=== PATIENT | male | born 1970 | race Caucasian/White ===

== ENCOUNTER 2017-04-14 08:26 | Inpatient (IN) | payer OTHER ==
[2017-04-14 10:18] VITALS: BMI 24.5
--- NOTE | 2017-04-14 12:50 | HP ---
COWS - Scale Resting Pulse: 0= [place] 80 or Below Sweatin= Chills/Flushing Restless Observation: 3= Extraneous Movement Pupil Size: 2= Moderately Dilated Bone or Joint Aches: 4=Acute Joint/Muscle Pain Runny Nose/ Eye Tearin= Nasal Congestion GI Upset > 30mins: 1= Stomach Cramp Tremor Observation: 1= Tremor [place], Not Seen Yawning Observation: 1= 1-2x During Session Anxiety or Irritability: 2=Irritable/Anxious Goose Flesh Skin: 0=Smooth Skin COWS Score: 16 Admission ROS S - HPI Chief Complaint: DETOX TX FOR HEROIN WITHDRAWAL SX. Allergies/Adverse Reactions: Allergies Allergy/AdvReac Type Severity Reaction Status Date / Time No Known Allergies Allergy Verified 04/14/17 10:44 History of Present Illness: 46 Y/O H/M WITH A HX OF HEROIN DEPENDENCE AND SOME DAYS XANAX USE SEEKING DETOX TX. Exam Limitations: No Limitations - Ebola screening Have you traveled outside of the country in the last 21 days: No Have you had contact with anyone from an Ebola affected area: No Have you been sick,other than usual withdrawal symptoms: No - Review of Systems Constitutional: Chills, Night Sweats, Changes in sleep, Unintentional Wgt. Loss EENT: reports: Blurred Vision, Tearing, Nose Congestion, Dental Problems ( CAVITIES) Respiratory: reports: No Symptoms reported Cardiac: reports: Lightheadedness GI: reports: Constipated, Diarrhea, Nausea, Poor Fluid Intake, Vomiting, Abdominal cramping : reports: No Symptoms Reported Musculoskeletal: reports: Back Pain, Joint Pain, Muscle Pain Integumentary: reports: No Symptoms Reported Neuro: reports: Headache, Tremors, Unsteady Gait, Dizziness Endocrine: reports: No Symptoms Reported Hematology: reports: No Symptoms Reported Psychiatric: reports: Orientated x3, Anxious Other Systems: Reviewed and Negative Patient History - Patient Medical History Hx Anemia: No Hx Asthma: No Hx Chronic Obstructive Pulmonary Disease (COPD): No Hx Cardiac Disorders: No Hx Hypertension: No Hx Hypercholesterolemia: No HX Cerebrovascular Accident: No Hx Seizures: No Hx Diabetes: No Hx Gastrointestinal Disorders: No Hx Genitourinary Disorders: No Hx Sexually Transmitted Disorders: No Hx Renal Disease (ESRD): No Hx Thyroid Disease: No Hx Human Immunodeficiency Virus (HIV): No (NEGATIVE HX) Hx Hepatitis C: No Hx Depression: No Hx Suicide Attempt: No (DENIES) Hx Schizophrenia: No - Patient Surgical History Past Surgical History: No Hx Neurologic Surgery: No Hx Cataract Extraction: No Hx Cardiac Surgery: No Hx Lung Surgery: No Hx Breast Surgery: No Hx Breast Biopsy: No Hx Abdominal Surgery: No Hx Appendectomy: No Hx Cholecystectomy: No Hx Genitourinary Surgery: No Hx Orthopedic Surgery: No Anesthesia Reaction: No - PPD History Previous Implant?: Yes Implanted On Prior [facility] Admission?: No PPD to be Administered?: Yes - Reproductive History Patient is a Female of Child Bearing Age (11 -55 yrs old): No (MALE) Patient : Yes (N/A) - Smoking Cessation Smoking history: Current every day smoker Have you smoked in the past 12 months: Yes Aproximately how many cigarettes per day: 8 Hx Chewing Tobacco Use: No Initiated information on smoking cessation: Yes 'Breaking Loose' booklet given: 04/14/17 - Substance & Tx. History Hx Alcohol Use: No (DENIES) Hx Substance Use: Yes (HEROIN/XANAX) Substance Use Type: Heroin, Tranquilizers Hx Substance Use Treatment: Yes (LAST TX AT [facility] DETOX) - Substances Abused Heroin Route: Inhalation Frequency: Daily Amount used: 20 bags Age of first use: 15 Date of Last Use: 04/14/17 Xanax Route: Oral Frequency: 1-3 times last 30 days Amount used: 2 mg. Age of first use: 45 Date of Last Use: 04/12/17 Family Disease History - Family Disease History Family Disease History: Diabetes: Father Admission Physical Exam S - Vital Signs Vital Signs: Vital Signs - 24 hr 04/14/17 10:16 Temperature 97.2 F L Pulse Rate 69 Respiratory 20 Rate Blood Pressure 100/69 - Physical General Appearance: Yes: Moderate Distress, Irritable, Anxious HEENTM: Yes: EOMI, Normal ENT Inspection, Normocephalic, FADI Respiratory: Yes: Chest Non-Tender, Lungs Clear, Normal Breath Sounds, No Respiratory Distress Neck: Yes: No masses,lesions,Nodules, Supple, Trachea in good position Breast: Yes: Breast Exam Deferred Cardiology: Yes: Regular Rhythm, Regular Rate, S1, S2 Abdominal: Yes: Normal Bowel Sounds, Non Tender, Flat Genitourinary: Yes: Other Back: Yes: Within Normal Limits Musculoskeletal: Yes: full range of Motion, Gait Steady Extremities: Yes: Normal Range of Motion, Non-Tender Neurological: Yes: battery repairer II-XII NML intact, Fully Oriented, Alert, Motor Strength 5/5 Integumentary: Yes: Dry, Warm Lymphatic: Yes: Within Normal Limits - Diagnostic (1) Opioid dependence with withdrawal Current Visit: Yes Status: Acute Cleared for Admission [facility] - Detox or Rehab [facility] Level of Care: Medically Managed Detox Regimen/Protocol: Methadone [facility] Breath Alcohol Content Breath Alcohol Content: 0 Urine Drug Screen - Results Drug Screen Negative: No Urine Drug Screen Results: THC-Marijuana, MARLEEN-Cocaine
[2017-04-14] MEDS ORDERED: ACETAMINOPHEN 325 MG TABLET (FP) PO PRN (12:58)
[2017-04-14] MEDS ORDERED: guaiFENesin/D-METHORPHAN HB 10 ML UNIT-DOSE CUPS PO PRN (12:58)
[2017-04-14] MEDS ORDERED: NICOTINE POLACRILEX 2 MG GUM BC PRN (12:58)
[2017-04-14] MEDS ORDERED: LOPERAMIDE HCL 2 MG CAPSULE PO PRN (12:58)
[2017-04-14] MEDS ORDERED: P-EPHED 60MG/TRIPROLIDI 2.5MG TABLET PO PRN (12:58)
[2017-04-14] MEDS ORDERED: MAG HYDROX/AL HYDROX/SIMETH 30 ML UNIT-DOSE CUP PO PRN (12:58)
[2017-04-14] MEDS ORDERED: MAGNESIUM CITRATE 300 ML BOTTLE PO PRN (12:58)
[2017-04-14] MEDS ORDERED: IBUPROFEN 400 MG TABLET (FP) PO PRN (12:58)
[2017-04-14] MEDS ORDERED: MAGNESIUM HYDROX 2400MG/30ML ORAL SUSPENSION 30 ML CUP PO PRN (12:58)
[2017-04-14] MEDS ORDERED: MENTHOL/PHENOL 1 EACH UD MM PRN (12:58)
[2017-04-14] MEDS ORDERED: METHADONE HCL 10 MG TABLET (FOR DETOX USE ONLY) PO ONE ×2 (14:00→23:00)
[2017-04-14 15:15] LABS: HIV 1 & 2 AB NEGATIVE; HIV 1 AGp24 NEGATIVE
[2017-04-14] MEDS: NICOTINE 14 MG/24 HOURS TOPICAL PATCH TD SCH (15:45)
[2017-04-14] MEDS: diazePAM 5 MG TABLET PO PRN (15:45)
[2017-04-14 16:33] LABS: MCH 30.2 pg (25.7-33.7); MEAN CELL VOLUME 88.7 fl (80-96); MEAN PLT VOLUME 10.6 fl (7.5-11.1); PLATELET COUNT 251 K/MM3 (134-434); WHITE BLOOD COUNT 10.4 K/mm3 (4.0-10.0)
--- NOTE | 2017-04-14 16:45 | CONSULT ---
[facility] Psychiatric Consult - Data Date of interview: 04/14/17 Admission source: [facility] Identifying data: First admission to [facility] for this 46 y/o male seeking detox treament on for heroin and xanax dependence (toxicology is positive for cocaine and marihuana).Patient is ,a father of two, homeless,unemployed and supported on Public Assistance. Substance Abuse History: Discussed with patient in this session.Mr Suarez admits to active use of xanax,heroin and intermittent exposure to cocaine + cannabis.See [facility] report for details. Smoking history: Current every day smoker. Have you smoked in the past 12 months: Yes. Aproximately how many cigarettes per day: 8. Hx Chewing Tobacco Use: No. Initiated information on smoking cessation: Yes. 'Breaking Loose' booklet given: 04/14/17. - Substance & Tx. History. Hx Alcohol Use: No (DENIES). Hx Substance Use: Yes (HEROIN/ XANAX). Substance Use Type: Heroin, Tranquilizers. Hx Substance Use Treatment : Yes (LAST TX AT [facility] DETOX). - Substances Abused. Heroin. Route: Inhalation. Frequency: Daily. Amount used: 20 bags. Age of first use: 15. Date of Last Use: 04/14/17. Xanax. Route: Oral. Frequency : 1-3 times last 30 days. Amount used: 2 mg. Age of first use: 45. Date of Last Use: 04/12/17 Medical History: Patient endorses good general health. Psychiatric History: Patient denies. Physical/Sexual Abuse/Trauma History: Patient denies. Additional Comment: Urine Drug Screen Results: THC-Marijuana, MARLEEN-Cocaine.Noted. Mental Status Exam - Mental Status Exam Alert and Oriented to: Time, Place, Person Cognitive Function: Good Patient Appearance: Well Groomed Mood: Anxious, Hopeful Affect: Mood Congruent Patient Behavior: Fatigued, Appropriate, Cooperative Speech Pattern: Clear, Appropriate Voice Loudness: Normal Thought Process: Intact, Goal Oriented Thought Disorder: Not Present Hallucinations: Denies Suicidal Ideation: Denies Homicidal Ideation: Denies Insight/Judgement: Poor Sleep: Poorly, Difficulty falling asleep Appetite: Good Muscle strength/Tone: Normal Gait/Station: Normal Psychiatric Findings - Problem List ([place] 1, 2,3) (1) Opioid dependence with withdrawal Current Visit: Yes Status: Acute (2) Cannabis abuse Current Visit: Yes Status: Acute (3) Cocaine abuse Current Visit: Yes Status: Acute (4) Nicotine dependence Current Visit: Yes Status: Acute (5) Insomnia Current Visit: Yes Status: Acute - Initial Treatment Plan Initial Treatment Plan: Psychoeducation.Sleep hygiene.Detoxification.Ambien 10 mg po hs prn.Side effects/benefits discussed with the patient.He agrees wth this careplan.Observation.
[2017-04-14 17:11] LABS: ALBUMIN 3.8 g/dl (3.4-5.0); ALK PHOS 123 U/L (45-117); ANION GAP 8 (8-16); BILIRUBIN,TOTAL 0.8 mg/dL (0.2-1.0); CALCIUM 8.7 mg/dL (8.5-10.1); CO2 29 mmol/L (21-32); CREATININE 0.8 mg/dL (0.7-1.3); GLUCOSE,RANDOM 81 mg/dL (74-106); SGOT/AST 11 U/L (15-37); SGPT/ALT 20 U/L (12-78); TOT PROT 7.2 g/dl (6.4-8.2)
[2017-04-14] MEDS: ZOLPIDEM TARTRATE 10 MG TABLET (PARK CARE ONLY) PO PRN (22:02)
[2017-04-14] MEDS: THIAMINE HCL 100 MG TABLET (FP) PO SCH (22:02)
[2017-04-14 22:39] LABS: URINE APPEARANCE CLEAR; URINE BILIRUBIN NEGATIVE (NEGATIVE); URINE BLOOD 1+ (NEGATIVE); URINE COLOR YELLOW; URINE GLUCOSE (UA) NEGATIVE (NEGATIVE); URINE KETONE TRACE (NEGATIVE); URINE NITRITE NEGATIVE (NEGATIVE); URINE PROTEIN NEGATIVE (NEGATIVE); URINE UROBILINOGEN NEGATIVE mg/dL (0.2-1.0)
[2017-04-14 22:49] LABS: SICKLE CELL SCREEN NEGATIVE (NEGATIVE)
[2017-04-14 23:05] LABS: URINE MUCUS RARE; URINE RBC 0-2 /hpf (0-3); URINE WBC 0-2 /hpf (3-5)
[2017-04-15] MEDS: diazePAM 5 MG TABLET PO PRN ×2 (05:58→17:24)
[2017-04-15] MEDS ORDERED: METHADONE HCL 10 MG TABLET (FOR DETOX USE ONLY) PO ONE (10:00)
[2017-04-15] MEDS: NICOTINE 14 MG/24 HOURS TOPICAL PATCH TD SCH (10:35)
[2017-04-15] MEDS: PRENATAL VITAMINS W/ FOLIC ACID TABLET (FP) PO SCH (10:35)
[2017-04-15 11:49] LABS: URINE LEUK ESTERASE Negative (NEGATIVE)
--- NOTE | 2017-04-15 12:37 | PN ---
BHS COWS - Scale Resting Pulse: 0= [place] 80 or Below Sweatin= Chills/Flushing Restless Observation: 1= Difficult to Sit Still Pupil Size: 0= Normal to Room Light Bone or Joint Aches: 2= Severe Diffuse Aches Runny Nose/ Eye Tearin= Nasal Congestion GI Upset > 30mins: 2= Nausea/Diarrhea Tremor Observation of Outstretched Hands: 2= Slight Tremor Visible Yawning Observation: 1= 1-2x During Session Anxiety or Irritability: 2=Irritable/Anxious Goose Flesh Skin: 3=Piloerection COWS Score: 15 S Progress Note (SOAP) Subjective: Stomach Cramping, Nausea, Tremors, Sweating. Objective: PT. A & O X 3. NO ACUTE DISTRESS. 04/15/17 12:35 Vital Signs Temperature 96.3 F L 04/15/17 11:11 Pulse Rate 71 04/15/17 11:11 Respiratory Rate 20 04/15/17 11:11 Blood Pressure 113/73 04/15/17 11:11 O2 Sat by Pulse Oximetry (%) Laboratory Tests 04/14/17 04/14/17 04/14/17 12:00 13:00 13:00 WBC 10.4 H RBC 4.50 Hgb 13.6 Hct 39.9 MCV 88.7 MCH 30.2 MCHC 34.0 RDW 14.0 Plt Count 251 MPV 10.6 Sickle Cell Screen Negative Sodium 143 Potassium 4.5 Chloride 106 Carbon Dioxide 29 Anion Gap 8 BUN 12 Creatinine 0.8 Creat Clearance w eGFR > 60 Random Glucose 81 Calcium 8.7 Total Bilirubin 0.8 AST 11 L ALT 20 Alkaline Phosphatase 123 H Total Protein 7.2 Albumin 3.8 Urine Color Urine Appearance Urine pH Ur Specific [place] Urine Protein Urine Glucose (UA) Urine Ketones Urine Blood Urine Nitrite Urine Bilirubin Urine Urobilinogen Ur Leukocyte Esterase Urine RBC Urine WBC Ur Epithelial Cells Urine Mucus RPR Titer HIV 1&2 Antibody Screen Negative HIV P24 Antigen Negative 04/14/17 04/14/17 13:00 21:00 WBC RBC Hgb Hct MCV MCH MCHC RDW Plt Count MPV Sickle Cell Screen Sodium Potassium Chloride Carbon Dioxide Anion Gap BUN Creatinine Creat Clearance w eGFR Random Glucose Calcium Total Bilirubin AST ALT Alkaline Phosphatase Total Protein Albumin Urine Color Yellow Urine Appearance Clear Urine pH 6.0 Ur Specific [place] 1.018 Urine Protein Negative Urine Glucose (UA) Negative Urine Ketones Trace H Urine Blood 1+ H Urine Nitrite Negative Urine Bilirubin Negative Urine Urobilinogen Negative Ur Leukocyte Esterase Negative Urine RBC 0-2 Urine WBC 0-2 Ur Epithelial Cells Rare Urine Mucus Rare RPR Titer Nonreactive HIV 1&2 Antibody Screen HIV P24 Antigen LABS NOTED. Assessment: 04/15/17 12:36 WITHDRAWAL SYMPTOMS. Plan: CONTINUE DETOX. INCREASE DAILY PO FLUID INTAKE.
--- NOTE | 2017-04-15 16:41 | EKG ---
Test Reason : Blood Pressure : / mmHG Vent. Rate : 064 BPM Atrial Rate : 064 BPM P-R Int : 128 ms QRS Dur : 088 ms QT Int : 400 ms P-R-T Axes : 051 -34 027 degrees QTc Int : 412 ms NORMAL SINUS RHYTHM LEFT AXIS DEVIATION ABNORMAL ECG NO PREVIOUS ECGS AVAILABLE Confirmed by ANOOP PEREZ, CHRISTELLE ([id number]) on 04/15/2017 4:40:49 PM Referred By: Confirmed By:CHRISTELLE DAVALOS MD
[2017-04-15] MEDS: ZOLPIDEM TARTRATE 10 MG TABLET (PARK CARE ONLY) PO PRN (22:23)
[2017-04-15] MEDS: THIAMINE HCL 100 MG TABLET (FP) PO SCH (22:23)
[2017-04-16] MEDS ORDERED: METHADONE HCL 5 MG TABLET (FOR DETOX USE ONLY) PO ONE (10:00)
[2017-04-16] MEDS: NICOTINE 14 MG/24 HOURS TOPICAL PATCH TD SCH (10:33)
[2017-04-16] MEDS: PRENATAL VITAMINS W/ FOLIC ACID TABLET (FP) PO SCH (10:33)
[2017-04-16] MEDS: diazePAM 5 MG TABLET PO PRN ×2 (10:35→22:02)
--- NOTE | 2017-04-16 12:24 | PN ---
S COWS - Scale Resting Pulse: 0= [place] 80 or Below Sweatin= Chills/Flushing Restless Observation: 1= Difficult to Sit Still Pupil Size: 0= Normal to Room Light Bone or Joint Aches: 2= Severe Diffuse Aches Runny Nose/ Eye Tearin= None GI Upset > 30mins: 0= None Tremor Observation of Outstretched Hands: 2= Slight Tremor Visible Yawning Observation: 1= 1-2x During Session Anxiety or Irritability: 2=Irritable/Anxious Goose Flesh Skin: 3=Piloerection COWS Score: 12 BHS Progress Note (SOAP) Subjective: Anxious, Fatigue, Tremors, Body Aches. Objective: PT. A & O X 3, OBSERVED AMBULATING ON UNIT. NO ACUTE DISTRESS. 04/16/17 12:22 Vital Signs Temperature 96.1 F L 04/16/17 09:38 Pulse Rate 69 04/16/17 09:38 Respiratory Rate 18 04/16/17 09:38 Blood Pressure 105/73 04/16/17 09:38 O2 Sat by Pulse Oximetry (%) Laboratory Tests 04/14/17 04/14/17 04/14/17 12:00 13:00 13:00 WBC 10.4 H RBC 4.50 Hgb 13.6 Hct 39.9 MCV 88.7 MCH 30.2 MCHC 34.0 RDW 14.0 Plt Count 251 MPV 10.6 Sickle Cell Screen Negative Sodium 143 Potassium 4.5 Chloride 106 Carbon Dioxide 29 Anion Gap 8 BUN 12 Creatinine 0.8 Creat Clearance w eGFR > 60 Random Glucose 81 Calcium 8.7 Total Bilirubin 0.8 AST 11 L ALT 20 Alkaline Phosphatase 123 H Total Protein 7.2 Albumin 3.8 Urine Color Urine Appearance Urine pH Ur Specific [place] Urine Protein Urine Glucose (UA) Urine Ketones Urine Blood Urine Nitrite Urine Bilirubin Urine Urobilinogen Ur Leukocyte Esterase Urine RBC Urine WBC Ur Epithelial Cells Urine Mucus RPR Titer HIV 1&2 Antibody Screen Negative HIV P24 Antigen Negative 04/14/17 04/14/17 13:00 21:00 WBC RBC Hgb Hct MCV MCH MCHC RDW Plt Count MPV Sickle Cell Screen Sodium Potassium Chloride Carbon Dioxide Anion Gap BUN Creatinine Creat Clearance w eGFR Random Glucose Calcium Total Bilirubin AST ALT Alkaline Phosphatase Total Protein Albumin Urine Color Yellow Urine Appearance Clear Urine pH 6.0 Ur Specific [place] 1.018 Urine Protein Negative Urine Glucose (UA) Negative Urine Ketones Trace H Urine Blood 1+ H Urine Nitrite Negative Urine Bilirubin Negative Urine Urobilinogen Negative Ur Leukocyte Esterase Negative Urine RBC 0-2 Urine WBC 0-2 Ur Epithelial Cells Rare Urine Mucus Rare RPR Titer Nonreactive HIV 1&2 Antibody Screen HIV P24 Antigen LABS NOTED. Assessment: 04/16/17 12:23 WITHDRAWAL SYMPTOMS. Plan: CONTINUE DETOX. INCREASE DAILY PO FLUID INTAKE. ENCOURAGE AMBULATION.
[2017-04-16] MEDS: THIAMINE HCL 100 MG TABLET (FP) PO SCH (22:02)
[2017-04-16] MEDS: ZOLPIDEM TARTRATE 10 MG TABLET (PARK CARE ONLY) PO PRN (22:02)
[2017-04-17] MEDS ORDERED: METHADONE HCL 5 MG TABLET (FOR DETOX USE ONLY) PO ONE (10:00)
[2017-04-17] MEDS: PRENATAL VITAMINS W/ FOLIC ACID TABLET (FP) PO SCH (10:23)
[2017-04-17] MEDS: diazePAM 5 MG TABLET PO PRN (10:24)
[2017-04-17] MEDS: NICOTINE 14 MG/24 HOURS TOPICAL PATCH TD SCH (10:26)
[2017-04-17] MEDS: AMMONIUM LACTATE 12% LOTION 225 GM BOTTLE TP SCH ×2 (13:05→22:08)
--- NOTE | 2017-04-17 16:17 | PN ---
BHS Progress Note (SOAP) Subjective: Tremors, Anxious. Objective: PT. A & O X 3, OBSERVED AMBULATING ON UNIT. NO ACUTE DISTRESS. 04/17/17 16:15 Vital Signs Temperature 97.7 F 04/17/17 13:11 Pulse Rate 84 04/17/17 13:11 Respiratory Rate 18 04/17/17 13:11 Blood Pressure 117/65 04/17/17 13:11 O2 Sat by Pulse Oximetry (%) Laboratory Tests 04/14/17 04/14/17 04/14/17 12:00 13:00 13:00 WBC 10.4 H RBC 4.50 Hgb 13.6 Hct 39.9 MCV 88.7 MCH 30.2 MCHC 34.0 RDW 14.0 Plt Count 251 MPV 10.6 Sickle Cell Screen Negative Sodium 143 Potassium 4.5 Chloride 106 Carbon Dioxide 29 Anion Gap 8 BUN 12 Creatinine 0.8 Creat Clearance w eGFR > 60 Random Glucose 81 Calcium 8.7 Total Bilirubin 0.8 AST 11 L ALT 20 Alkaline Phosphatase 123 H Total Protein 7.2 Albumin 3.8 Urine Color Urine Appearance Urine pH Ur Specific [place] Urine Protein Urine Glucose (UA) Urine Ketones Urine Blood Urine Nitrite Urine Bilirubin Urine Urobilinogen Ur Leukocyte Esterase Urine RBC Urine WBC Ur Epithelial Cells Urine Mucus RPR Titer HIV 1&2 Antibody Screen Negative HIV P24 Antigen Negative 04/14/17 04/14/17 13:00 21:00 WBC RBC Hgb Hct MCV MCH MCHC RDW Plt Count MPV Sickle Cell Screen Sodium Potassium Chloride Carbon Dioxide Anion Gap BUN Creatinine Creat Clearance w eGFR Random Glucose Calcium Total Bilirubin AST ALT Alkaline Phosphatase Total Protein Albumin Urine Color Yellow Urine Appearance Clear Urine pH 6.0 Ur Specific [place] 1.018 Urine Protein Negative Urine Glucose (UA) Negative Urine Ketones Trace H Urine Blood 1+ H Urine Nitrite Negative Urine Bilirubin Negative Urine Urobilinogen Negative Ur Leukocyte Esterase Negative Urine RBC 0-2 Urine WBC 0-2 Ur Epithelial Cells Rare Urine Mucus Rare RPR Titer Nonreactive HIV 1&2 Antibody Screen HIV P24 Antigen LABS NOTED. Assessment: 04/17/17 16:16 WITHDRAWAL SYMPTOMS. Plan: CONTINUE DETOX.
[2017-04-17] MEDS: THIAMINE HCL 100 MG TABLET (FP) PO SCH (22:09)
[2017-04-17] MEDS ORDERED: hydrOXYzine PAMOATE 50 MG CAPSULE (FP) PO PRN (22:59)
[2017-04-18] MEDS ORDERED: METHADONE HCL 10 MG TABLET (FOR DETOX USE ONLY) PO ONE (10:00)
[2017-04-18] MEDS: AMMONIUM LACTATE 12% LOTION 225 GM BOTTLE TP SCH ×2 (10:06→23:24)
[2017-04-18] MEDS: PRENATAL VITAMINS W/ FOLIC ACID TABLET (FP) PO SCH (10:06)
[2017-04-18] MEDS: NICOTINE 14 MG/24 HOURS TOPICAL PATCH TD SCH (10:06)
--- NOTE | 2017-04-18 14:10 | PN ---
BHS Progress Note (SOAP) Subjective: Anxious, sweating Objective: 04/18/17 14:06 Last Vital Signs Temp Pulse Resp BP Pulse Ox 98.6 F 78 18 144/73 04/18/17 13:43 04/18/17 13:43 04/18/17 13:43 04/18/17 13:43 Laboratory Tests 04/14/17 04/14/17 04/14/17 12:00 13:00 13:00 WBC 10.4 H RBC 4.50 Hgb 13.6 Hct 39.9 MCV 88.7 MCH 30.2 MCHC 34.0 RDW 14.0 Plt Count 251 MPV 10.6 Sickle Cell Screen Negative Sodium 143 Potassium 4.5 Chloride 106 Carbon Dioxide 29 Anion Gap 8 BUN 12 Creatinine 0.8 Creat Clearance w eGFR > 60 Random Glucose 81 Calcium 8.7 Total Bilirubin 0.8 AST 11 L ALT 20 Alkaline Phosphatase 123 H Total Protein 7.2 Albumin 3.8 Urine Color Urine Appearance Urine pH Ur Specific [place] Urine Protein Urine Glucose (UA) Urine Ketones Urine Blood Urine Nitrite Urine Bilirubin Urine Urobilinogen Ur Leukocyte Esterase Urine RBC Urine WBC Ur Epithelial Cells Urine Mucus RPR Titer HIV 1&2 Antibody Screen Negative HIV P24 Antigen Negative 04/14/17 04/14/17 13:00 21:00 WBC RBC Hgb Hct MCV MCH MCHC RDW Plt Count MPV Sickle Cell Screen Sodium Potassium Chloride Carbon Dioxide Anion Gap BUN Creatinine Creat Clearance w eGFR Random Glucose Calcium Total Bilirubin AST ALT Alkaline Phosphatase Total Protein Albumin Urine Color Yellow Urine Appearance Clear Urine pH 6.0 Ur Specific [place] 1.018 Urine Protein Negative Urine Glucose (UA) Negative Urine Ketones Trace H Urine Blood 1+ H Urine Nitrite Negative Urine Bilirubin Negative Urine Urobilinogen Negative Ur Leukocyte Esterase Negative Urine RBC 0-2 Urine WBC 0-2 Ur Epithelial Cells Rare Urine Mucus Rare RPR Titer Nonreactive HIV 1&2 Antibody Screen HIV P24 Antigen Labs noted: UA shows microscopic hematuria Assessment: 04/18/17 14:07 Withdrawal symptoms Noted with microscopic hematuria Plan: Continue detox Microscopic hematuria: encouraged to drink lots of water, repeat UA
[2017-04-18 16:26] LABS: URINE APPEARANCE SLCLOUDY; URINE BILIRUBIN NEGATIVE (NEGATIVE); URINE BLOOD NEGATIVE (NEGATIVE); URINE COLOR AMBER; URINE GLUCOSE (UA) NEGATIVE (NEGATIVE); URINE KETONE TRACE (NEGATIVE); URINE NITRITE NEGATIVE (NEGATIVE); URINE PROTEIN NEGATIVE (NEGATIVE); URINE UROBILINOGEN NEGATIVE mg/dL (0.2-1.0)
[2017-04-18 19:03] LABS: URINE LEUK ESTERASE Negative (NEGATIVE)
[2017-04-18] MEDS: THIAMINE HCL 100 MG TABLET (FP) PO SCH (22:11)
[2017-04-19] MEDS ORDERED: METHADONE HCL 5 MG TABLET (FOR DETOX USE ONLY) PO ONE (06:00)
[2017-04-19 06:08] VITALS: BP 104/61; PULSE 62; TEMP 97.3
--- NOTE | 2017-04-19 09:00 | DS ---
[facility] Detox Discharge Summary Admission Date: 04/14/17 Discharge Date: 04/19/17 - History Present History: Cannabis Dependence, Cocaine Dependence, Opioid Dependence, Sedative Dependence Additional Comments: refused rehab Pertinent Past History: anxiety, depression, insomnia, nicotine dependence - Physical Exam Results Vital Signs: Vital Signs Temperature 97.3 F L 04/19/17 06:07 Pulse Rate 62 04/19/17 06:07 Respiratory Rate 18 04/19/17 06:07 Blood Pressure 104/61 04/19/17 06:07 O2 Sat by Pulse Oximetry (%) Laboratory Tests 04/14/17 04/14/17 04/14/17 12:00 13:00 13:00 WBC 10.4 H RBC 4.50 Hgb 13.6 Hct 39.9 MCV 88.7 MCH 30.2 MCHC 34.0 RDW 14.0 Plt Count 251 MPV 10.6 Sickle Cell Screen Negative Sodium 143 Potassium 4.5 Chloride 106 Carbon Dioxide 29 Anion Gap 8 BUN 12 Creatinine 0.8 Creat Clearance w eGFR > 60 Random Glucose 81 Calcium 8.7 Total Bilirubin 0.8 AST 11 L ALT 20 Alkaline Phosphatase 123 H Total Protein 7.2 Albumin 3.8 Urine Color Urine Appearance Urine pH Ur Specific [place] Urine Protein Urine Glucose (UA) Urine Ketones Urine Blood Urine Nitrite Urine Bilirubin Urine Urobilinogen Ur Leukocyte Esterase Urine RBC Urine WBC Ur Epithelial Cells Urine Mucus RPR Titer HIV 1&2 Antibody Screen Negative HIV P24 Antigen Negative 04/14/17 04/14/17 04/18/17 13:00 21:00 14:29 WBC RBC Hgb Hct MCV MCH MCHC RDW Plt Count MPV Sickle Cell Screen Sodium Potassium Chloride Carbon Dioxide Anion Gap BUN Creatinine Creat Clearance w eGFR Random Glucose Calcium Total Bilirubin AST ALT Alkaline Phosphatase Total Protein Albumin Urine Color Yellow [place] Urine Appearance Clear [place] Urine pH 6.0 5.0 Ur Specific [place] 1.018 1.026 Urine Protein Negative Negative Urine Glucose (UA) Negative Negative Urine Ketones Trace H Trace H Urine Blood 1+ H Negative Urine Nitrite Negative Negative Urine Bilirubin Negative Negative Urine Urobilinogen Negative Negative Ur Leukocyte Esterase Negative Negative Urine RBC 0-2 Urine WBC 0-2 Ur Epithelial Cells Rare Urine Mucus Rare RPR Titer Nonreactive HIV 1&2 Antibody Screen HIV P24 Antigen Pertinent Admission Physical Exam Findings: withdrawal sx - Treatment Hospital Course: Detox Protocol Followed, Detoxed Safely, Responded well, Discharged Condition Good, Rehab Referral Accepted Patient has Accepted a Rehab Referral to: NO - Medication Discharge Medications: Ambulatory Orders NK [No Known Home Medication] 04/14/17 - Diagnosis (1) Insomnia Status: Acute Qualifiers: Insomnia type: unspecified Qualified Code(s): G47.00 - Insomnia, unspecified (2) Opioid dependence with withdrawal Status: Acute (3) Benzodiazepine abuse Status: Chronic (4) Cannabis abuse Status: Chronic (5) Cocaine abuse Status: Chronic (6) Nicotine dependence Status: Chronic Qualifiers: Nicotine product type: cigarettes Substance use status: uncomplicated Qualified Code(s): F17.210 - Nicotine dependence, cigarettes, uncomplicated - AMA Did Patient Leave Against Medical Advice: No
== END 2017-04-19 06:15 | disposition home or self-care (01) | DRG 773 ==
LOC: YASAS 08:26 → Y3N 13:26
PROVIDERS: ADMIT Internal Medicine; ATTEND Internal Medicine
PROC: HZ2ZZZZ Detoxification Services for Substance Abuse Treatment (ICD-10-PCS; principal; 2017-04-14)
DX: F14.10 Cocaine abuse, uncomplicated (principal); F11.23 Opioid dependence with withdrawal; F13.10 Sedative, hypnotic or anxiolytic abuse, uncomplicated; F12.10 Cannabis abuse, uncomplicated; F17.210 Nicotine dependence, cigarettes, uncomplicated; G47.00 Insomnia, unspecified
CPT/HCPCS: 36415; 80053; 81003; 81015; 85027; 85660; 86593; 87389; 93005; 93010

== ENCOUNTER 2017-05-12 09:31 | Inpatient (IN) | payer OTHER ==
[2017-05-12 12:11] VITALS: BMI 26.6
--- NOTE | 2017-05-12 15:54 | HP ---
COWS - Scale Resting Pulse: 0= [place] 80 or Below Sweatin= Chills/Flushing Restless Observation: 1= Difficult to Sit Still Pupil Size: 0= Normal to Room Light Bone or Joint Aches: 1= Mild Discomfort Runny Nose/ Eye Tearin= Nasal Congestion GI Upset > 30mins: 3= Vomiting/Diarrhea Tremor Observation: 2= Slight Tremor Visible Yawning Observation: 1= 1-2x During Session Anxiety or Irritability: 2=Irritable/Anxious Goose Flesh Skin: 3=Piloerection COWS Score: 15 Admission ROS S - HPI Chief Complaint: "I need to get off this stuff." Patient is here to Detox from Heroin. Allergies/Adverse Reactions: Allergies Allergy/AdvReac Type Severity Reaction Status Date / Time No Known Allergies Allergy Verified 05/12/17 13:20 History of Present Illness: Pt. is a 46 YO male here to Detox from Heroin. Patient had a previous Detox admission at [facility] in 04/2017. Patient had a Detox admission at [facility] ([place], [place] in 2014. Longest period of previous non-drug use: approx. 2 years (late ). Exam Limitations: No Limitations - Ebola screening Have you traveled outside of the country in the last 21 days: No (N) Have you had contact with anyone from an Ebola affected area: No Have you been sick,other than usual withdrawal symptoms: No Do you have a fever: No - Review of Systems Constitutional: Chills, Diaphoresis, Fever, Loss of Appetite, Malaise, Night Sweats, Changes in sleep, Unintentional Wgt. Loss (Lost approx. 15 lbs. over last 2 years.) EENT: reports: Nose Congestion Respiratory: reports: No Symptoms reported Cardiac: reports: No Symptoms Reported GI: reports: Diarrhea, Nausea, Poor Appetite, Vomiting, Abdominal cramping : reports: No Symptoms Reported Musculoskeletal: reports: Back Pain Integumentary: reports: No Symptoms Reported Neuro: reports: Headache, Tremors Endocrine: reports: No Symptoms Reported Hematology: reports: No Symptoms Reported Psychiatric: reports: Judgement Intact, Mood/Affect Appropiate, Orientated x3, Anxious Other Systems: Reviewed and Negative Patient History - Patient Medical History Hx Anemia: No Hx Asthma: No Hx Chronic Obstructive Pulmonary Disease (COPD): No Hx Cancer: No Hx Cardiac Disorders: No Hx Congestive Heart Failure: No Hx Hypertension: No Hx Hypercholesterolemia: No Hx Pacemaker: No HX Cerebrovascular Accident: No Hx Seizures: No Hx Dementia: No Hx Diabetes: No Hx Gastrointestinal Disorders: No Hx Liver Disease: No Hx Genitourinary Disorders: No Hx Sexually Transmitted Disorders: No Hx Renal Disease (ESRD): No Hx Thyroid Disease: No Hx Human Immunodeficiency Virus (HIV): No (Last Tested: 2015: NEGATIVE.) Hx Hepatitis C: No (Last Tested: 2014: NEGATIVE.) Hx Depression: No Hx Suicide Attempt: No (PATIENT DENIES CURRENT SI / HI.) Hx Bipolar Disorder: No Hx Schizophrenia: No Other Medical History: DENIES. - Patient Surgical History Past Surgical History: No Hx Neurologic Surgery: No Hx Cataract Extraction: No Hx Cardiac Surgery: No Hx Lung Surgery: No Hx Breast Surgery: No Hx Breast Biopsy: No Hx Abdominal Surgery: No Hx Appendectomy: No Hx Cholecystectomy: No Hx Genitourinary Surgery: No Hx Section: No Hx Orthopedic Surgery: No Anesthesia Reaction: No - PPD History Previous Implant?: Yes Documented Results: Negative w/proof Implanted On Prior [facility] Admission?: Yes Date: 04/16/17 Results: 0 MM PPD to be Administered?: No - Reproductive History Patient is a Female of Child Bearing Age (11 -55 yrs old): No (PATIENT IS MALE.) - Smoking Cessation Smoking history: Current every day smoker Have you smoked in the past 12 months: Yes Aproximately how many cigarettes per day: 10 Cigars Per Day: 0 Hx Chewing Tobacco Use: No Initiated information on smoking cessation: Yes 'Breaking Loose' booklet given: 05/12/17 (GIVEN ON UNIT.) - Substance & Tx. History Hx Alcohol Use: No Hx Substance Use: Yes Substance Use Type: Heroin Hx Substance Use Treatment: Yes (1 Previous Detox admit at [facility] (04/23). 1 Detox at [facility] (2014).) - Substances Abused Heroin Route: Inhalation Frequency: Daily Amount used: 15-20 BAGS Age of first use: 15 Date of Last Use: 05/11/17 Family Disease History - Family Disease History Family Disease History: Diabetes: Father Admission Physical Exam BHS - Vital Signs Vital Signs: Vital Signs - 24 hr 05/12/17 12:09 Temperature 95.9 F L Pulse Rate 66 Respiratory 20 Rate Blood Pressure 108/65 - Physical General Appearance: Yes: No Apparent Distress, Nourished, Appropriately Dressed , Tremorous, Anxious HEENTM: Yes: Hearing grossly Normal, Normocephalic, Normal Voice, FADI, Pharynx Normal Respiratory: Yes: Chest Non-Tender, Lungs Clear, No Respiratory Distress, No Accessory Muscle Use Neck: Yes: No masses,lesions,Nodules, Supple, Trachea in good position Breast: Yes: Breast Exam Deferred Cardiology: Yes: Regular Rhythm, Regular Rate, S1, S2 Abdominal: Yes: Normal Bowel Sounds, Non Tender, Flat, Soft Genitourinary: Yes: Within Normal Limits Back: Yes: Decreased Range of Motion Musculoskeletal: Yes: Gait Steady, Back pain Extremities: Yes: Normal Capillary Refill, Normal Range of Motion, Non-Tender, Tremors Neurological: Yes: Fully Oriented, Alert, Normal Mood/Affect, Normal Response Integumentary: Yes: Normal Color, Dry, Warm Lymphatic: Yes: Within Normal Limits - Diagnostic (1) Nicotine dependence Current Visit: Yes Status: Chronic Qualifiers: Nicotine product type: cigarettes Substance use status: uncomplicated Qualified Code(s): F17.210 - Nicotine dependence, cigarettes, uncomplicated (2) Opioid dependence with withdrawal Current Visit: Yes Status: Acute Cleared for Admission [facility] - Detox or Rehab [facility] Level of Care: Medically Managed Detox Regimen/Protocol: Methadone [facility] Breath Alcohol Content Breath Alcohol Content: 0 Urine Drug Screen - Results Drug Screen Negative: No Urine Drug Screen Results: OPI-Opiates
[2017-05-12] MEDS ORDERED: MENTHOL/PHENOL 1 EACH UD MM PRN (16:23)
[2017-05-12] MEDS ORDERED: ACETAMINOPHEN 325 MG TABLET (FP) PO PRN (16:23)
[2017-05-12] MEDS ORDERED: NICOTINE POLACRILEX 2 MG GUM BC PRN (16:23)
[2017-05-12] MEDS ORDERED: IBUPROFEN 400 MG TABLET (FP) PO PRN (16:23)
[2017-05-12] MEDS ORDERED: LOPERAMIDE HCL 2 MG CAPSULE PO PRN (16:23)
[2017-05-12] MEDS ORDERED: MAGNESIUM HYDROX 2400MG/30ML ORAL SUSPENSION 30 ML CUP PO PRN (16:23)
[2017-05-12] MEDS ORDERED: P-EPHED 60MG/TRIPROLIDI 2.5MG TABLET PO PRN (16:23)
[2017-05-12] MEDS ORDERED: MAGNESIUM CITRATE 300 ML BOTTLE PO PRN (16:23)
[2017-05-12] MEDS ORDERED: MAG HYDROX/AL HYDROX/SIMETH 30 ML UNIT-DOSE CUP PO PRN (16:23)
[2017-05-12] MEDS ORDERED: guaiFENesin/D-METHORPHAN HB 10 ML UNIT-DOSE CUPS PO PRN (16:23)
[2017-05-12] MEDS ORDERED: METHADONE HCL 10 MG TABLET (FOR DETOX USE ONLY) PO ONE ×2 (17:00→23:00)
[2017-05-12] MEDS: diazePAM 5 MG TABLET PO PRN ×2 (18:11→22:25)
[2017-05-12] MEDS: NICOTINE 21 MG/24 HOURS TOPICAL PATCH TD SCH (18:12)
[2017-05-12] MEDS: THIAMINE HCL 100 MG TABLET (FP) PO SCH (22:25)
[2017-05-12 23:40] LABS: URINE APPEARANCE CLEAR; URINE BILIRUBIN NEGATIVE (NEGATIVE); URINE BLOOD NEGATIVE (NEGATIVE); URINE COLOR LTYELLOW; URINE GLUCOSE (UA) NEGATIVE (NEGATIVE); URINE KETONE NEGATIVE (NEGATIVE); URINE LEUK ESTERASE NEGATIVE (NEGATIVE); URINE NITRITE NEGATIVE (NEGATIVE); URINE PROTEIN NEGATIVE (NEGATIVE); URINE UROBILINOGEN NEGATIVE mg/dL (0.2-1.0)
[2017-05-13] MEDS ORDERED: METHADONE HCL 10 MG TABLET (FOR DETOX USE ONLY) PO ONE (10:00)
[2017-05-13 10:11] LABS: MCH 29.3 pg (25.7-33.7); MCHC 32.5 g/dl (32.0-35.9); MEAN CELL VOLUME 90.1 fl (80-96); MEAN PLT VOLUME 10.4 fl (7.5-11.1); PLATELET COUNT 239 K/MM3 (134-434); RDW 13.8 % (11.9-15.9); WHITE BLOOD COUNT 8.5 K/mm3 (4.0-10.0)
[2017-05-13] MEDS: diazePAM 5 MG TABLET PO PRN ×2 (10:35→22:44)
[2017-05-13] MEDS: PRENATAL VITAMINS W/ FOLIC ACID TABLET (FP) PO SCH (10:35)
[2017-05-13] MEDS: NICOTINE 21 MG/24 HOURS TOPICAL PATCH TD SCH (10:35)
[2017-05-13 10:36] LABS: ALBUMIN 3.6 g/dl (3.4-5.0); ALK PHOS 119 U/L (45-117); ANION GAP 6 (8-16); BILIRUBIN,TOTAL 0.4 mg/dL (0.2-1.0); CALCIUM 8.8 mg/dL (8.5-10.1); CO2 30 mmol/L (21-32); CREATININE 0.9 mg/dL (0.7-1.3); GLUCOSE,RANDOM 89 mg/dL (74-106); SGOT/AST 13 U/L (15-37); SGPT/ALT 17 U/L (12-78); TOT PROT 6.9 g/dl (6.4-8.2)
[2017-05-13 11:08] LABS: HIV 1 & 2 AB NEGATIVE; HIV 1 AGp24 NEGATIVE
--- NOTE | 2017-05-13 11:45 | EKG ---
Test Reason : Blood Pressure : / mmHG Vent. Rate : 065 BPM Atrial Rate : 065 BPM P-R Int : 140 ms QRS Dur : 092 ms QT Int : 404 ms P-R-T Axes : 056 -34 030 degrees QTc Int : 420 ms NORMAL SINUS RHYTHM LEFT AXIS DEVIATION ABNORMAL ECG WHEN COMPARED WITH ECG OF 14-APR-2017 16:33, NO SIGNIFICANT CHANGE WAS FOUND Confirmed by CHRISTELLE DAVALOS MD ([id number]) on 05/13/2017 11:45:10 AM Referred By: ANURAG KING Confirmed By:CHRISTELLE DAVALOS MD
--- NOTE | 2017-05-13 13:27 | PN ---
BHS COWS - Scale Resting Pulse: 0= [place] 80 or Below Sweatin=Flushed/Facial Moisture Restless Observation: 1= Difficult to Sit Still Pupil Size: 1= Pupils >than Normal Bone or Joint Aches: 4=Acute Joint/Muscle Pain Runny Nose/ Eye Tearin= Constantly Teary/Runny GI Upset > 30mins: 0= None Tremor Observation of Outstretched Hands: 0= None Yawning Observation: 0= None Anxiety or Irritability: 4=Extreme Anxiety Goose Flesh Skin: 0=Smooth Skin COWS Score: 16 BHS Progress Note (SOAP) Subjective: restless, tremors, body aches, interrupted sleep, malaise Objective: 05/13/17 13:26 Vital Signs Temperature 98.1 F 05/13/17 13:17 Pulse Rate 64 05/13/17 13:17 Respiratory Rate 18 05/13/17 13:17 Blood Pressure 125/69 05/13/17 13:17 O2 Sat by Pulse Oximetry (%) Laboratory Last Values WBC 8.5 K/mm3 (4.0-10.0) 05/13/17 06:00 RBC 4.13 M/mm3 (4.00-5.60) 05/13/17 06:00 Hgb 12.1 GM/dL (11.7-16.9) D 05/13/17 06:00 Hct 37.2 % (35.4-49) 05/13/17 06:00 MCV 90.1 fl (80-96) 05/13/17 06:00 MCH 29.3 pg (25.7-33.7) 05/13/17 06:00 MCHC 32.5 g/dl (32.0-35.9) 05/13/17 06:00 RDW 13.8 % (11.9-15.9) 05/13/17 06:00 Plt Count 239 K/MM3 (134-434) 05/13/17 06:00 MPV 10.4 fl (7.5-11.1) 05/13/17 06:00 Sodium 141 mmol/L (136-145) 05/13/17 06:00 Potassium 4.4 mmol/L (3.5-5.1) 05/13/17 06:00 Chloride 105 mmol/L (98-107) 05/13/17 06:00 Carbon Dioxide 30 mmol/L (21-32) 05/13/17 06:00 Anion Gap 6 (8-16) L 05/13/17 06:00 BUN 19 mg/dL (7-18) H D 05/13/17 06:00 Creatinine 0.9 mg/dL (0.7-1.3) 05/13/17 06:00 Creat Clearance w eGFR > 60 (>60) 05/13/17 06:00 Random Glucose 89 mg/dL (74-106) 05/13/17 06:00 Calcium 8.8 mg/dL (8.5-10.1) 05/13/17 06:00 Total Bilirubin 0.4 mg/dL (0.2-1.0) D 05/13/17 06:00 AST 13 U/L (15-37) L 05/13/17 06:00 ALT 17 U/L (12-78) 05/13/17 06:00 Alkaline Phosphatase 119 U/L (45-117) H 05/13/17 06:00 Total Protein 6.9 g/dl (6.4-8.2) 05/13/17 06:00 Albumin 3.6 g/dl (3.4-5.0) 05/13/17 06:00 Urine Color Ltyellow 05/12/17 21:35 Urine Appearance Clear 05/12/17 21:35 Urine pH 5.0 (5.0-8.0) 05/12/17 21:35 Ur Specific [place] 1.015 (1.001-1.035) 05/12/17 21:35 Urine Protein Negative (NEGATIVE) 05/12/17 21:35 Urine Glucose (UA) Negative (NEGATIVE) 05/12/17 21:35 Urine Ketones Negative (NEGATIVE) 05/12/17 21:35 Urine Blood Negative (NEGATIVE) 05/12/17 21:35 Urine Nitrite Negative (NEGATIVE) 05/12/17 21:35 Urine Bilirubin Negative (NEGATIVE) 05/12/17 21:35 Urine Urobilinogen Negative mg/dL (0.2-1.0) 05/12/17 21:35 RPR Titer Nonreactive (NONREACTIVE) 05/13/17 06:00 HIV 1&2 Antibody Screen Negative 05/12/17 13:25 HIV P24 Antigen Negative 05/12/17 13:25 labs reviewed` Assessment: 05/13/17 13:27 withdrawal symptoms Plan: Continue detox
[2017-05-13 14:32] LABS: URINE LEUK ESTERASE Negative (NEGATIVE)
[2017-05-13] MEDS: THIAMINE HCL 100 MG TABLET (FP) PO SCH (22:43)
[2017-05-14] MEDS ORDERED: METHADONE HCL 5 MG TABLET (FOR DETOX USE ONLY) PO ONE (10:00)
[2017-05-14] MEDS: diazePAM 5 MG TABLET PO PRN ×3 (10:57→22:35)
[2017-05-14] MEDS: PRENATAL VITAMINS W/ FOLIC ACID TABLET (FP) PO SCH (10:57)
[2017-05-14] MEDS: NICOTINE 21 MG/24 HOURS TOPICAL PATCH TD SCH (10:58)
--- NOTE | 2017-05-14 11:05 | PN ---
BHS COWS - Scale Resting Pulse: 0= [place] 80 or Below Sweatin=Flushed/Facial Moisture Restless Observation: 1= Difficult to Sit Still Pupil Size: 0= Normal to Room Light Bone or Joint Aches: 2= Severe Diffuse Aches Runny Nose/ Eye Tearin= Runny Nose/Eyes GI Upset > 30mins: 2= Nausea/Diarrhea Tremor Observation of Outstretched Hands: 2= Slight Tremor Visible Yawning Observation: 1= 1-2x During Session Anxiety or Irritability: 2=Irritable/Anxious Goose Flesh Skin: 0=Smooth Skin COWS Score: 14 BHS Progress Note (SOAP) Subjective: Anxiety,tremors,sweating,interrupted sleep,restless. Objective: 05/14/17 11:04 Vital Signs - 8 hr 05/14/17 05/14/17 05/14/17 03:30 06:00 10:00 Temperature 97.5 F L 97.7 F Pulse Rate 64 65 Respiratory 18 18 18 Rate Blood Pressure 110/58 106/62 Laboratory Tests 05/12/17 05/12/17 05/13/17 13:25 21:35 06:00 WBC 8.5 RBC 4.13 Hgb 12.1 D Hct 37.2 MCV 90.1 MCH 29.3 MCHC 32.5 RDW 13.8 Plt Count 239 MPV 10.4 Sodium Potassium Chloride Carbon Dioxide Anion Gap BUN Creatinine Creat Clearance w eGFR Random Glucose Calcium Total Bilirubin AST ALT Alkaline Phosphatase Total Protein Albumin Urine Color Ltyellow Urine Appearance Clear Urine pH 5.0 Ur Specific [place] 1.015 Urine Protein Negative Urine Glucose (UA) Negative Urine Ketones Negative Urine Blood Negative Urine Nitrite Negative Urine Bilirubin Negative Urine Urobilinogen Negative Ur Leukocyte Esterase Negative RPR Titer HIV 1&2 Antibody Screen Negative HIV P24 Antigen Negative 05/13/17 05/13/17 06:00 06:00 WBC RBC Hgb Hct MCV MCH MCHC RDW Plt Count MPV Sodium 141 Potassium 4.4 Chloride 105 Carbon Dioxide 30 Anion Gap 6 L BUN 19 H D Creatinine 0.9 Creat Clearance w eGFR > 60 Random Glucose 89 Calcium 8.8 Total Bilirubin 0.4 D AST 13 L ALT 17 Alkaline Phosphatase 119 H Total Protein 6.9 Albumin 3.6 Urine Color Urine Appearance Urine pH Ur Specific [place] Urine Protein Urine Glucose (UA) Urine Ketones Urine Blood Urine Nitrite Urine Bilirubin Urine Urobilinogen Ur Leukocyte Esterase RPR Titer Nonreactive HIV 1&2 Antibody Screen HIV P24 Antigen labs noted Assessment: 05/14/17 11:04 Withdrawal sx. Plan: Continue detox
[2017-05-14] MEDS: THIAMINE HCL 100 MG TABLET (FP) PO SCH (22:35)
[2017-05-15] MEDS ORDERED: METHADONE HCL 5 MG TABLET (FOR DETOX USE ONLY) PO ONE (10:00)
[2017-05-15] MEDS: PRENATAL VITAMINS W/ FOLIC ACID TABLET (FP) PO SCH (11:25)
[2017-05-15] MEDS: NICOTINE 21 MG/24 HOURS TOPICAL PATCH TD SCH (11:26)
[2017-05-15] MEDS: diazePAM 5 MG TABLET PO PRN (11:27)
--- NOTE | 2017-05-15 13:43 | PN ---
BHS Progress Note (SOAP) Subjective: Sweating,interrupted sleep,restless Objective: 05/15/17 13:42 Vital Signs - 8 hr 05/15/17 05/15/17 06:45 10:00 Temperature 96.4 F L 98.1 F Pulse Rate 56 L 68 Respiratory 16 18 Rate Blood Pressure 105/59 120/71 Laboratory Tests 05/12/17 05/12/17 05/13/17 13:25 21:35 06:00 WBC 8.5 RBC 4.13 Hgb 12.1 D Hct 37.2 MCV 90.1 MCH 29.3 MCHC 32.5 RDW 13.8 Plt Count 239 MPV 10.4 Sodium Potassium Chloride Carbon Dioxide Anion Gap BUN Creatinine Creat Clearance w eGFR Random Glucose Calcium Total Bilirubin AST ALT Alkaline Phosphatase Total Protein Albumin Urine Color Ltyellow Urine Appearance Clear Urine pH 5.0 Ur Specific [place] 1.015 Urine Protein Negative Urine Glucose (UA) Negative Urine Ketones Negative Urine Blood Negative Urine Nitrite Negative Urine Bilirubin Negative Urine Urobilinogen Negative Ur Leukocyte Esterase Negative RPR Titer HIV 1&2 Antibody Screen Negative HIV P24 Antigen Negative 05/13/17 05/13/17 06:00 06:00 WBC RBC Hgb Hct MCV MCH MCHC RDW Plt Count MPV Sodium 141 Potassium 4.4 Chloride 105 Carbon Dioxide 30 Anion Gap 6 L BUN 19 H D Creatinine 0.9 Creat Clearance w eGFR > 60 Random Glucose 89 Calcium 8.8 Total Bilirubin 0.4 D AST 13 L ALT 17 Alkaline Phosphatase 119 H Total Protein 6.9 Albumin 3.6 Urine Color Urine Appearance Urine pH Ur Specific [place] Urine Protein Urine Glucose (UA) Urine Ketones Urine Blood Urine Nitrite Urine Bilirubin Urine Urobilinogen Ur Leukocyte Esterase RPR Titer Nonreactive HIV 1&2 Antibody Screen HIV P24 Antigen labs noted Assessment: 05/15/17 13:43 Withdrawal sx. Plan: Continue detox
[2017-05-15] MEDS: THIAMINE HCL 100 MG TABLET (FP) PO SCH (23:35)
[2017-05-16] MEDS ORDERED: METHADONE HCL 10 MG TABLET (FOR DETOX USE ONLY) PO ONE (10:00)
[2017-05-16] MEDS: PRENATAL VITAMINS W/ FOLIC ACID TABLET (FP) PO SCH (10:40)
[2017-05-16] MEDS: NICOTINE 21 MG/24 HOURS TOPICAL PATCH TD SCH (10:40)
--- NOTE | 2017-05-16 13:55 | PN ---
BHS Progress Note (SOAP) Subjective: sweating restlessness Objective: 05/16/17 13:53 Vital Signs Temperature 98.6 F 05/16/17 10:28 Pulse Rate 85 05/16/17 10:28 Respiratory Rate 16 05/16/17 10:28 Blood Pressure 111/68 05/16/17 10:28 O2 Sat by Pulse Oximetry (%) Laboratory Last Values WBC 8.5 K/mm3 (4.0-10.0) 05/13/17 06:00 RBC 4.13 M/mm3 (4.00-5.60) 05/13/17 06:00 Hgb 12.1 GM/dL (11.7-16.9) D 05/13/17 06:00 Hct 37.2 % (35.4-49) 05/13/17 06:00 MCV 90.1 fl (80-96) 05/13/17 06:00 MCH 29.3 pg (25.7-33.7) 05/13/17 06:00 MCHC 32.5 g/dl (32.0-35.9) 05/13/17 06:00 RDW 13.8 % (11.9-15.9) 05/13/17 06:00 Plt Count 239 K/MM3 (134-434) 05/13/17 06:00 MPV 10.4 fl (7.5-11.1) 05/13/17 06:00 Sodium 141 mmol/L (136-145) 05/13/17 06:00 Potassium 4.4 mmol/L (3.5-5.1) 05/13/17 06:00 Chloride 105 mmol/L (98-107) 05/13/17 06:00 Carbon Dioxide 30 mmol/L (21-32) 05/13/17 06:00 Anion Gap 6 (8-16) L 05/13/17 06:00 BUN 19 mg/dL (7-18) H D 05/13/17 06:00 Creatinine 0.9 mg/dL (0.7-1.3) 05/13/17 06:00 Creat Clearance w eGFR > 60 (>60) 05/13/17 06:00 Random Glucose 89 mg/dL (74-106) 05/13/17 06:00 Calcium 8.8 mg/dL (8.5-10.1) 05/13/17 06:00 Total Bilirubin 0.4 mg/dL (0.2-1.0) D 05/13/17 06:00 AST 13 U/L (15-37) L 05/13/17 06:00 ALT 17 U/L (12-78) 05/13/17 06:00 Alkaline Phosphatase 119 U/L (45-117) H 05/13/17 06:00 Total Protein 6.9 g/dl (6.4-8.2) 05/13/17 06:00 Albumin 3.6 g/dl (3.4-5.0) 05/13/17 06:00 Urine Color Ltyellow 05/12/17 21:35 Urine Appearance Clear 05/12/17 21:35 Urine pH 5.0 (5.0-8.0) 05/12/17 21:35 Ur Specific [place] 1.015 (1.001-1.035) 05/12/17 21:35 Urine Protein Negative (NEGATIVE) 05/12/17 21:35 Urine Glucose (UA) Negative (NEGATIVE) 05/12/17 21:35 Urine Ketones Negative (NEGATIVE) 05/12/17 21:35 Urine Blood Negative (NEGATIVE) 05/12/17 21:35 Urine Nitrite Negative (NEGATIVE) 05/12/17 21:35 Urine Bilirubin Negative (NEGATIVE) 05/12/17 21:35 Urine Urobilinogen Negative mg/dL (0.2-1.0) 05/12/17 21:35 Ur Leukocyte Esterase Negative (NEGATIVE) 05/12/17 21:35 RPR Titer Nonreactive (NONREACTIVE) 05/13/17 06:00 HIV 1&2 Antibody Screen Negative 05/12/17 13:25 HIV P24 Antigen Negative 05/12/17 13:25 lab noted Assessment: 05/16/17 13:55 mild withdrawal sx Plan: continue observation with detox regimen
[2017-05-16] MEDS: THIAMINE HCL 100 MG TABLET (FP) PO SCH (22:55)
[2017-05-17] MEDS ORDERED: METHADONE HCL 5 MG TABLET (FOR DETOX USE ONLY) PO ONE (06:00)
[2017-05-17 06:14] VITALS: BP 140/71; PULSE 59; TEMP 98.1
--- NOTE | 2017-05-17 08:40 | DS ---
[facility] Detox Discharge Summary Admission Date: 05/12/17 Discharge Date: 05/17/17 - History Present History: Opioid Dependence - Physical Exam Results Vital Signs: Vital Signs Temperature 98.1 F 05/17/17 06:14 Pulse Rate 59 L 05/17/17 06:14 Respiratory Rate 16 05/17/17 06:14 Blood Pressure 140/71 05/17/17 06:14 O2 Sat by Pulse Oximetry (%) - Treatment Hospital Course: Detox Protocol Followed, Detoxed Safely, Responded well, Discharged Condition Good, Rehab Referral Accepted - Medication Discharge Medications: Ambulatory Orders NK [No Known Home Medication] 04/14/17 - Diagnosis (1) Insomnia Status: Acute Qualifiers: Insomnia type: unspecified Qualified Code(s): G47.00 - Insomnia, unspecified (2) Benzodiazepine abuse Status: Chronic (3) Cannabis abuse Status: Chronic (4) Cocaine abuse Status: Chronic (5) Nicotine dependence Status: Chronic Qualifiers: Nicotine product type: cigarettes Substance use status: uncomplicated Qualified Code(s): F17.210 - Nicotine dependence, cigarettes, uncomplicated (6) Opioid dependence with withdrawal Status: Chronic - AMA Did Patient Leave Against Medical Advice: No
== END 2017-05-17 06:45 | disposition home or self-care (01) | DRG 774 ==
LOC: YASAS 09:31 → Y6N 13:37
PROVIDERS: ADMIT Internal Medicine; ATTEND Internal Medicine
PROC: HZ2ZZZZ Detoxification Services for Substance Abuse Treatment (ICD-10-PCS; principal; 2017-05-12)
DX: F10.20 Alcohol dependence, uncomplicated (principal); F13.10 Sedative, hypnotic or anxiolytic abuse, uncomplicated; F14.20 Cocaine dependence, uncomplicated; F12.20 Cannabis dependence, uncomplicated; F17.210 Nicotine dependence, cigarettes, uncomplicated; G47.00 Insomnia, unspecified
CPT/HCPCS: 36415; 80053; 81003; 85027; 86593; 87389; 93005; 93010

== ENCOUNTER 2017-06-19 08:27 | Inpatient (IN) | payer OTHER ==
[2017-06-19 09:05] VITALS: BMI 26.9
--- NOTE | 2017-06-19 09:22 | HP ---
COWS - Scale Resting Pulse: 0= [place] 80 or Below Sweatin= Chills/Flushing Restless Observation: 0= Sits Still Pupil Size: 0= Normal to Room Light Bone or Joint Aches: 1= Mild Discomfort Runny Nose/ Eye Tearin= Nasal Congestion GI Upset > 30mins: 1= Stomach Cramp Tremor Observation: 1= Tremor [place], Not Seen Yawning Observation: 1= 1-2x During Session Anxiety or Irritability: 2=Irritable/Anxious Goose Flesh Skin: 3=Piloerection COWS Score: 11 Admission ROS BHS - HPI Chief Complaint: I'm tired, I want detox Allergies/Adverse Reactions: Allergies Allergy/AdvReac Type Severity Reaction Status Date / Time No Known Allergies Allergy Verified 06/19/17 09:15 History of Present Illness: 46 yo gentleman here for detox from heroin - not using alcohol. Previously here in may 2017 but did not f/u with rehab - discussed same and encouraged f/u with rehab given he relapsed upon discharge. States he was in a methadone program in past - encouraged him to f/u with that again to prevent relapse. No seizures, no current medication. - Ebola screening Have you traveled outside of the country in the last 21 days: No Have you had contact with anyone from an Ebola affected area: No Have you been sick,other than usual withdrawal symptoms: No - Review of Systems Constitutional: Loss of Appetite, Malaise, Changes in sleep EENT: reports: Nose Congestion Respiratory: reports: No Symptoms reported Cardiac: reports: No Symptoms Reported GI: reports: Nausea, Abdominal cramping : reports: Dysuria Musculoskeletal: reports: Back Pain, Joint Pain, Muscle Pain Neuro: reports: No Symptoms reported Endocrine: reports: No Symptoms Reported Hematology: reports: No Symptoms Reported Psychiatric: reports: Judgement Intact, Mood/Affect Appropiate, Orientated x3, Anxious Other Systems: Reviewed and Negative Patient History - Patient Medical History Hx Anemia: No Hx Asthma: No Hx Chronic Obstructive Pulmonary Disease (COPD): No Hx Cancer: No Hx Cardiac Disorders: No Hx Congestive Heart Failure: No Hx Hypertension: No Hx Hypercholesterolemia: No Hx Pacemaker: No HX Cerebrovascular Accident: No Hx Seizures: No Hx Dementia: No Hx Diabetes: No Hx Gastrointestinal Disorders: No Hx Liver Disease: No Hx Genitourinary Disorders: No Hx Sexually Transmitted Disorders: No Hx Renal Disease (ESRD): No Hx Thyroid Disease: No Hx Human Immunodeficiency Virus (HIV): No (Last Tested: 2015: NEGATIVE.) Hx Hepatitis C: No (Last Tested: 2014: NEGATIVE.) Hx Depression: No Hx Suicide Attempt: No (PATIENT DENIES CURRENT SI / HI.) Hx Bipolar Disorder: No Hx Schizophrenia: No - Patient Surgical History Past Surgical History: No Hx Neurologic Surgery: No Hx Cataract Extraction: No Hx Cardiac Surgery: No Hx Lung Surgery: No Hx Breast Surgery: No Hx Breast Biopsy: No Hx Abdominal Surgery: No Hx Appendectomy: No Hx Cholecystectomy: No Hx Genitourinary Surgery: No Hx Section: No Hx Orthopedic Surgery: No Anesthesia Reaction: No - PPD History Previous Implant?: Yes Documented Results: Negative w/proof Date: 04/16/17 Results: 0 MM PPD to be Administered?: No - Reproductive History Patient is a Female of Child Bearing Age (11 -55 yrs old): No (male) - Smoking Cessation Smoking history: Current every day smoker Have you smoked in the past 12 months: Yes Aproximately how many cigarettes per day: 6 Cigars Per Day: 0 Hx Chewing Tobacco Use: No Initiated information on smoking cessation: Yes 'Breaking Loose' booklet given: 06/19/17 (give on floor) - Substance & Tx. History Hx Alcohol Use: No Hx Substance Use: Yes Substance Use Type: Heroin Hx Substance Use Treatment: Yes (detox, rehab) - Substances Abused Heroin Route: Inhalation Frequency: Daily Amount used: 20 bags Age of first use: 15 Date of Last Use: 06/18/17 Family Disease History - Family Disease History Family Disease History: Diabetes: Father (living, ), Other: Father, Mother ( living, healthy), Brother (one living ), Son (age 21 - healthy), Daughter (age 28 - healthy) Admission Physical Exam BHS - Vital Signs Vital Signs: Vital Signs - 24 hr 06/19/17 09:02 Temperature 97.6 F Pulse Rate 63 Respiratory 18 Rate Blood Pressure 113/70 - Physical General Appearance: Yes: Appropriately Dressed, Disheveled, Mild Distress, Anxious, Other (poor hygiene) HEENTM: Yes: Hearing grossly Normal, Normocephalic, Normal Voice Respiratory: Yes: Normal Breath Sounds, No Respiratory Distress Neck: Yes: No masses,lesions,Nodules, Supple Breast: Yes: Breast Exam Deferred Cardiology: Yes: Regular Rhythm, Regular Rate Abdominal: Yes: Soft Genitourinary: Yes: Dysuria Back: Yes: Decreased Range of Motion Musculoskeletal: Yes: full range of Motion, Gait Steady, Back pain, Muscle Pain Extremities: Yes: Normal Inspection, Normal Range of Motion, Non-Tender Neurological: Yes: Fully Oriented, Alert, Normal Mood/Affect, Normal Response Integumentary: Yes: Normal Color, Warm Lymphatic: Yes: Within Normal Limits - Diagnostic (1) Opioid dependence with withdrawal Current Visit: Yes Status: Chronic (2) Nicotine dependence Current Visit: Yes Status: Chronic Qualifiers: Nicotine product type: cigarettes Substance use status: uncomplicated Qualified Code(s): F17.210 - Nicotine dependence, cigarettes, uncomplicated Cleared for Admission [facility] - Detox or Rehab [facility] Level of Care: Medically Managed Detox Regimen/Protocol: Methadone [facility] Breath Alcohol Content Breath Alcohol Content: 0 Urine Drug Screen - Results Drug Screen Negative: No Urine Drug Screen Results: OPI-Opiates
[2017-06-19] MEDS ORDERED: hydrOXYzine PAMOATE 50 MG CAPSULE (FP) PO PRN (09:30)
[2017-06-19] MEDS ORDERED: MAGNESIUM CITRATE 300 ML BOTTLE PO PRN (09:30)
[2017-06-19] MEDS ORDERED: IBUPROFEN 400 MG TABLET (FP) PO PRN (09:30)
[2017-06-19] MEDS ORDERED: MAG HYDROX/AL HYDROX/SIMETH 30 ML UNIT-DOSE CUP PO PRN (09:30)
[2017-06-19] MEDS ORDERED: ACETAMINOPHEN 325 MG TABLET (FP) PO PRN (09:30)
[2017-06-19] MEDS ORDERED: NICOTINE POLACRILEX 2 MG GUM BUC PRN (09:30)
[2017-06-19] MEDS ORDERED: guaiFENesin/D-METHORPHAN HB 10 ML UNIT-DOSE CUPS PO PRN (09:30)
[2017-06-19] MEDS ORDERED: P-EPHED 60MG/TRIPROLIDI 2.5MG TABLET PO PRN (09:30)
[2017-06-19] MEDS ORDERED: MAGNESIUM HYDROX 2400MG/30ML ORAL SUSPENSION 30 ML CUP PO PRN (09:30)
[2017-06-19] MEDS ORDERED: MENTHOL/PHENOL 1 EACH UD MM PRN (09:30)
[2017-06-19] MEDS ORDERED: LOPERAMIDE HCL 2 MG CAPSULE PO PRN (09:30)
[2017-06-19] MEDS ORDERED: METHADONE HCL 10 MG TABLET (FOR DETOX USE ONLY) PO ONE ×2 (11:30→23:00)
[2017-06-19] MEDS: NICOTINE 14 MG/24 HOURS TOPICAL PATCH TD SCH (13:44)
[2017-06-19] MEDS: diazePAM 5 MG TABLET PO PRN ×2 (13:44→22:45)
[2017-06-19] MEDS: PRENATAL VITAMINS W/ FOLIC ACID TABLET (FP) PO SCH (13:44)
[2017-06-19] MEDS ORDERED: METHADONE HCL 10 MG TABLET (FOR DETOX USE ONLY) ONE (13:45)
--- NOTE | 2017-06-19 16:23 | EKG ---
Test Reason : Blood Pressure : / mmHG Vent. Rate : 069 BPM Atrial Rate : 069 BPM P-R Int : 138 ms QRS Dur : 092 ms QT Int : 402 ms P-R-T Axes : 064 -38 046 degrees QTc Int : 430 ms NORMAL SINUS RHYTHM LEFT AXIS DEVIATION ABNORMAL ECG WHEN COMPARED WITH ECG OF 12-MAY-2017 18:13, NO SIGNIFICANT CHANGE WAS FOUND Confirmed by KAREY PINA MD ([id number]) on 06/19/2017 4:23:29 PM Referred By: Ramsey Flood Confirmed By:KAREY PINA MD
[2017-06-19 21:39] LABS: URINE APPEARANCE CLEAR; URINE BILIRUBIN NEGATIVE (NEGATIVE); URINE BLOOD NEGATIVE (NEGATIVE); URINE COLOR YELLOW; URINE GLUCOSE (UA) NEGATIVE (NEGATIVE); URINE KETONE NEGATIVE (NEGATIVE); URINE LEUK ESTERASE NEGATIVE (NEGATIVE); URINE NITRITE NEGATIVE (NEGATIVE); URINE PROTEIN NEGATIVE (NEGATIVE); URINE UROBILINOGEN NEGATIVE mg/dL (0.2-1.0)
[2017-06-19] MEDS: THIAMINE HCL 100 MG TABLET (FP) PO SCH (22:45)
[2017-06-20] MEDS ORDERED: METHADONE HCL 10 MG TABLET (FOR DETOX USE ONLY) PO ONE (10:00)
[2017-06-20 10:03] LABS: HEMOGLOBIN 12.7 GM/dL (11.7-16.9); MCH 29.6 pg (25.7-33.7); MCHC 32.6 g/dl (32.0-35.9); MEAN CELL VOLUME 90.9 fl (80-96); MEAN PLT VOLUME 9.8 fl (7.5-11.1); PLATELET COUNT 218 K/MM3 (134-434); RBC 4.29 M/mm3 (4.00-5.60); RDW 13.7 % (11.9-15.9); WHITE BLOOD COUNT 10.9 K/mm3 (4.0-10.0)
[2017-06-20 10:26] LABS: CHLORIDE 106 mmol/L (98-107); POTASSIUM 4.5 mmol/L (3.5-5.1); SODIUM 139 mmol/L (136-145)
[2017-06-20 10:32] LABS: ALK PHOS 120 U/L (45-117); ANION GAP 4 (8-16); BILIRUBIN,TOTAL 0.4 mg/dL (0.2-1.0); BLOOD UREA NITROGEN 20 mg/dL (7-18); CALCIUM 8.4 mg/dL (8.5-10.1); CO2 29 mmol/L (21-32); GLUCOSE,RANDOM 139 mg/dL (74-106); SGOT/AST 18 U/L (15-37); SGPT/ALT 24 U/L (12-78); TOT PROT 7.1 g/dl (6.4-8.2)
[2017-06-20] MEDS: NICOTINE 14 MG/24 HOURS TOPICAL PATCH TD SCH (10:36)
[2017-06-20] MEDS: PRENATAL VITAMINS W/ FOLIC ACID TABLET (FP) PO SCH (10:36)
[2017-06-20] MEDS: diazePAM 5 MG TABLET PO PRN ×3 (10:36→22:34)
--- NOTE | 2017-06-20 16:27 | PN ---
S COWS - Scale Resting Pulse: 1= [place] 81-100 Sweatin= Chills/Flushing Restless Observation: 1= Difficult to Sit Still Pupil Size: 0= Normal to Room Light Bone or Joint Aches: 0= None Runny Nose/ Eye Tearin= None GI Upset > 30mins: 2= Nausea/Diarrhea Tremor Observation of Outstretched Hands: 2= Slight Tremor Visible Yawning Observation: 1= 1-2x During Session Anxiety or Irritability: 2=Irritable/Anxious Goose Flesh Skin: 3=Piloerection COWS Score: 13 S Progress Note (SOAP) Subjective: Diarrhea, H/A, Tremors, Fatigue, Tremors, Stomach Cramping. Objective: PT. A & O X 3, OBSERVED AMBULATING ON UNIT. NO ACUTE DISTRESS. 06/20/17 16:25 Vital Signs Temperature 97.2 F L 06/20/17 14:49 Pulse Rate 90 06/20/17 14:49 Respiratory Rate 16 06/20/17 14:49 Blood Pressure 138/78 06/20/17 14:49 O2 Sat by Pulse Oximetry (%) Laboratory Tests 06/19/17 06/20/17 06/20/17 14:00 07:30 07:30 WBC 10.9 H RBC 4.29 Hgb 12.7 Hct 39.0 MCV 90.9 MCH 29.6 MCHC 32.6 RDW 13.7 Plt Count 218 MPV 9.8 Sodium 139 Potassium 4.5 Chloride 106 Carbon Dioxide 29 Anion Gap 4 L BUN 20 H Creatinine 1.0 Creat Clearance w eGFR > 60 Random Glucose 139 H D Calcium 8.4 L Total Bilirubin 0.4 AST 18 D ALT 24 D Alkaline Phosphatase 120 H Total Protein 7.1 Albumin 4.0 Urine Color Yellow Urine Appearance Clear Urine pH 6.0 Ur Specific [employer] 1.027 Urine Protein Negative Urine Glucose (UA) Negative Urine Ketones Negative Urine Blood Negative Urine Nitrite Negative Urine Bilirubin Negative Urine Urobilinogen Negative Ur Leukocyte Esterase Negative RPR Titer 06/20/17 07:30 WBC RBC Hgb Hct MCV MCH MCHC RDW Plt Count MPV Sodium Potassium Chloride Carbon Dioxide Anion Gap BUN Creatinine Creat Clearance w eGFR Random Glucose Calcium Total Bilirubin AST ALT Alkaline Phosphatase Total Protein Albumin Urine Color Urine Appearance Urine pH Ur Specific [employer] Urine Protein Urine Glucose (UA) Urine Ketones Urine Blood Urine Nitrite Urine Bilirubin Urine Urobilinogen Ur Leukocyte Esterase RPR Titer Nonreactive LABS NOTED. Assessment: 06/20/17 16:25 WITHDRAWAL SYMPTOMS. Plan: CONTINUE DETOX. INCREASE DAILY PO FLUID INTAKE. PRN IMMODIUM FOR DIARRHEA.
[2017-06-20] MEDS: THIAMINE HCL 100 MG TABLET (FP) PO SCH (22:34)
[2017-06-21 09:41] VITALS: BP 112/73; PULSE 53; TEMP 97.4
[2017-06-21] MEDS ORDERED: METHADONE HCL 5 MG TABLET (FOR DETOX USE ONLY) PO ONE (10:00)
[2017-06-21] MEDS: diazePAM 5 MG TABLET PO PRN (10:17)
[2017-06-21] MEDS: NICOTINE 14 MG/24 HOURS TOPICAL PATCH TD SCH (10:18)
[2017-06-21] MEDS: PRENATAL VITAMINS W/ FOLIC ACID TABLET (FP) PO SCH (10:18)
--- NOTE | 2017-06-21 16:26 | PN ---
[facility] COWS - Scale Resting Pulse: 0= [place] 80 or Below Sweatin=Flushed/Facial Moisture Restless Observation: 3= Extraneous Movement Pupil Size: 1= Pupils >than Normal Bone or Joint Aches: 1= Mild Discomfort Runny Nose/ Eye Tearin= Runny Nose/Eyes GI Upset > 30mins: 2= Nausea/Diarrhea Tremor Observation of Outstretched Hands: 2= Slight Tremor Visible Yawning Observation: 0= None Anxiety or Irritability: 0= None Goose Flesh Skin: 0=Smooth Skin COWS Score: 13 [facility] Progress Note (SOAP) Subjective: sweats/chills tremors Objective: 06/21/17 16:25 lying comfortable in bed no acute distress noted Laboratory Last Values WBC 10.9 K/mm3 (4.0-10.0) H 06/20/17 07:30 RBC 4.29 M/mm3 (4.00-5.60) 06/20/17 07:30 Hgb 12.7 GM/dL (11.7-16.9) 06/20/17 07:30 Hct 39.0 % (35.4-49) 06/20/17 07:30 MCV 90.9 fl (80-96) 06/20/17 07:30 MCH 29.6 pg (25.7-33.7) 06/20/17 07:30 MCHC 32.6 g/dl (32.0-35.9) 06/20/17 07:30 RDW 13.7 % (11.9-15.9) 06/20/17 07:30 Plt Count 218 K/MM3 (134-434) 06/20/17 07:30 MPV 9.8 fl (7.5-11.1) 06/20/17 07:30 Sodium 139 mmol/L (136-145) 06/20/17 07:30 Potassium 4.5 mmol/L (3.5-5.1) 06/20/17 07:30 Chloride 106 mmol/L (98-107) 06/20/17 07:30 Carbon Dioxide 29 mmol/L (21-32) 06/20/17 07:30 Anion Gap 4 (8-16) L 06/20/17 07:30 BUN 20 mg/dL (7-18) H 06/20/17 07:30 Creatinine 1.0 mg/dL (0.7-1.3) 06/20/17 07:30 Creat Clearance w eGFR > 60 (>60) 06/20/17 07:30 Random Glucose 139 mg/dL (74-106) H D 06/20/17 07:30 Calcium 8.4 mg/dL (8.5-10.1) L 06/20/17 07:30 Total Bilirubin 0.4 mg/dL (0.2-1.0) 06/20/17 07:30 AST 18 U/L (15-37) D 06/20/17 07:30 ALT 24 U/L (12-78) D 06/20/17 07:30 Alkaline Phosphatase 120 U/L (45-117) H 06/20/17 07:30 Total Protein 7.1 g/dl (6.4-8.2) 06/20/17 07:30 Albumin 4.0 g/dl (3.4-5.0) 06/20/17 07:30 Urine Color Yellow 06/19/17 14:00 Urine Appearance Clear 06/19/17 14:00 Urine pH 6.0 (5.0-8.0) 06/19/17 14:00 Ur Specific [place] 1.027 (1.001-1.035) 06/19/17 14:00 Urine Protein Negative (NEGATIVE) 06/19/17 14:00 Urine Glucose (UA) Negative (NEGATIVE) 06/19/17 14:00 Urine Ketones Negative (NEGATIVE) 06/19/17 14:00 Urine Blood Negative (NEGATIVE) 06/19/17 14:00 Urine Nitrite Negative (NEGATIVE) 06/19/17 14:00 Urine Bilirubin Negative (NEGATIVE) 06/19/17 14:00 Urine Urobilinogen Negative mg/dL (0.2-1.0) 06/19/17 14:00 Ur Leukocyte Esterase Negative (NEGATIVE) 06/19/17 14:00 RPR Titer Nonreactive (NONREACTIVE) 06/20/17 07:30 Labs noted Assessment: 06/21/17 16:26 withdrawal sx Plan: continue detox
[2017-06-22] MEDS ORDERED: METHADONE HCL 5 MG TABLET (FOR DETOX USE ONLY) PO ONE (10:00)
[2017-06-23] MEDS ORDERED: METHADONE HCL 10 MG TABLET (FOR DETOX USE ONLY) PO ONE (10:00)
[2017-06-24] MEDS ORDERED: METHADONE HCL 5 MG TABLET (FOR DETOX USE ONLY) PO ONE (06:00)
== END 2017-06-21 12:44 | disposition left against medical advice (07) | DRG 770 ==
LOC: YASAS 08:27 → Y3N 11:14
PROVIDERS: ADMIT Internal Medicine; ATTEND Internal Medicine
PROC: HZ2ZZZZ Detoxification Services for Substance Abuse Treatment (ICD-10-PCS; principal; 2017-06-19)
DX: F11.23 Opioid dependence with withdrawal (principal); F12.10 Cannabis abuse, uncomplicated; F17.210 Nicotine dependence, cigarettes, uncomplicated
CPT/HCPCS: 36415; 80053; 81003; 85027; 86593; 93005; 93010

== ENCOUNTER 2017-07-16 12:13 | Inpatient (IN) | payer OTHER ==
[2017-07-16 13:02] VITALS: BMI 24.3
--- NOTE | 2017-07-16 16:11 | HP ---
COWS - Scale Resting Pulse: 0= [place] 80 or Below Sweatin= Chills/Flushing Restless Observation: 0= Sits Still Pupil Size: 1= Pupils >than Normal Bone or Joint Aches: 2= Severe Diffuse Aches Runny Nose/ Eye Tearin= Runny Nose/Eyes GI Upset > 30mins: 2= Nausea/Diarrhea Tremor Observation: 1= Tremor [place], Not Seen Yawning Observation: 1= 1-2x During Session Anxiety or Irritability: 1=Feels Anxious/Irritable Goose Flesh Skin: 3=Piloerection COWS Score: 14 Admission ROS S - [facility] Chief Complaint: WITHDRAWAL SYMPTOMS Allergies/Adverse Reactions: Allergies Allergy/AdvReac Type Severity Reaction Status Date / Time No Known Allergies Allergy Verified 07/16/17 15:41 History of Present Illness: 46 Y.O. MAN WITH AN EXTENSIVE HISTORY OF OPIOID DEPENDENCE IS HERE SEEKING DETOX. HE WAS LAST HERE IN 06/21/17 WHEN HE LEFT A. HIS LONGEST PERIOD CLEAN HAS BEEN 2 YEARS. Exam Limitations: No Limitations - Ebola screening Have you traveled outside of the country in the last 21 days: No Have you had contact with anyone from an Ebola affected area: No Have you been sick,other than usual withdrawal symptoms: No Do you have a fever: No - Review of Systems Constitutional: Chills, Night Sweats, Changes in sleep EENT: reports: Blurred Vision Respiratory: reports: No Symptoms reported Cardiac: reports: Lightheadedness GI: reports: Diarrhea, Abdominal cramping : reports: No Symptoms Reported Musculoskeletal: reports: No Symptoms Reported Integumentary: reports: No Symptoms Reported Neuro: reports: Dizziness Endocrine: reports: No Symptoms Reported Hematology: reports: No Symptoms Reported Psychiatric: reports: Orientated x3 Other Systems: Reviewed and Negative Patient History - Patient Medical History Hx Anemia: No Hx Asthma: No Hx Chronic Obstructive Pulmonary Disease (COPD): No Hx Cancer: No Hx Cardiac Disorders: No Hx Congestive Heart Failure: No Hx Hypertension: No Hx Hypercholesterolemia: No Hx Pacemaker: No HX Cerebrovascular Accident: No Hx Seizures: No Hx Dementia: No Hx Diabetes: No Hx Gastrointestinal Disorders: No Hx Liver Disease: No Hx Genitourinary Disorders: No Hx Sexually Transmitted Disorders: No Hx Renal Disease (ESRD): No Hx Thyroid Disease: No Hx Human Immunodeficiency Virus (HIV): No (Last Tested: 2015: NEGATIVE.) Hx Hepatitis C: No (Last Tested: 2014: NEGATIVE.) Hx Depression: No Hx Suicide Attempt: No Hx Bipolar Disorder: No Hx Schizophrenia: No - Patient Surgical History Past Surgical History: No Hx Neurologic Surgery: No Hx Cataract Extraction: No Hx Cardiac Surgery: No Hx Lung Surgery: No Hx Breast Surgery: No Hx Breast Biopsy: No Hx Abdominal Surgery: No Hx Appendectomy: No Hx Cholecystectomy: No Hx Genitourinary Surgery: No Hx Section: No Hx Orthopedic Surgery: No Anesthesia Reaction: No - PPD History Previous Implant?: Yes Documented Results: Negative w/proof Implanted On Prior [facility] Admission?: Yes Date: 04/16/17 Results: 0 MM PPD to be Administered?: No - Reproductive History Patient is a Female of Child Bearing Age (11 -55 yrs old): No - Smoking Cessation Smoking history: Current every day smoker Have you smoked in the past 12 months: Yes Aproximately how many cigarettes per day: 7 Cigars Per Day: 0 Hx Chewing Tobacco Use: No Initiated information on smoking cessation: Yes 'Breaking Loose' booklet given: 07/16/17 - Substance & Tx. History Hx Alcohol Use: No Hx Substance Use: Yes Substance Use Type: Heroin Hx Substance Use Treatment: Yes (DETOX: 06/2017) - Substances Abused Heroin Route: Inhalation Frequency: Daily Amount used: 15 BAGS Age of first use: 15 Date of Last Use: 07/15/17 Family Disease History - Family Disease History Family Disease History: Diabetes: Father (living, ), Other: Father, Mother ( living, healthy), Brother (one living ), Son (age 21 - healthy), Daughter (age 28 - healthy) Admission Physical Exam S - Vital Signs Vital Signs: Vital Signs - 24 hr 07/16/17 12:58 Temperature 98 F Pulse Rate 77 Respiratory 18 Rate Blood Pressure 113/64 - Physical General Appearance: Yes: Disheveled, Anxious HEENTM: Yes: Hearing grossly Normal, Normal ENT Inspection, Normocephalic, Normal Voice Respiratory: Yes: Lungs Clear, Normal Breath Sounds, No Respiratory Distress, No Accessory Muscle Use Neck: Yes: No masses,lesions,Nodules, Trachea in good position Breast: Yes: Breast Exam Deferred Cardiology: Yes: Regular Rhythm, Regular Rate Abdominal: Yes: Normal Bowel Sounds, Non Tender, Flat Genitourinary: Yes: Other (NO COMPLAINTS REPORTED) Back: Yes: Normal Inspection Musculoskeletal: Yes: full range of Motion, Gait Steady Extremities: Yes: Normal Capillary Refill, Normal Inspection, Normal Range of Motion, Non-Tender Neurological: Yes: 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, Fully Oriented, Alert, Motor Strength 5/5, Normal Mood/Affect, Normal Response Integumentary: Yes: Normal Color, Dry, Warm Lymphatic: Yes: Within Normal Limits - Diagnostic (1) Nicotine dependence Current Visit: Yes Status: Chronic Qualifiers: Nicotine product type: cigarettes Substance use status: uncomplicated Qualified Code(s): F17.210 - Nicotine dependence, cigarettes, uncomplicated (2) Opioid dependence with withdrawal Current Visit: Yes Status: Chronic Cleared for Admission [facility] - Detox or Rehab [facility] Level of Care: Medically Managed Detox Regimen/Protocol: Methadone [facility] Breath Alcohol Content Breath Alcohol Content: 0 Urine Drug Screen - Results Drug Screen Negative: No Urine Drug Screen Results: OPI-Opiates, BZO-Benzodiazepines, OXY-Oxycodone
[2017-07-16] MEDS ORDERED: LOPERAMIDE HCL 2 MG CAPSULE PO PRN (16:21)
[2017-07-16] MEDS ORDERED: P-EPHED 60MG/TRIPROLIDI 2.5MG TABLET PO PRN (16:21)
[2017-07-16] MEDS ORDERED: hydrOXYzine PAMOATE 50 MG CAPSULE (FP) PO PRN (16:21)
[2017-07-16] MEDS ORDERED: NICOTINE POLACRILEX 2 MG GUM BC PRN (16:21)
[2017-07-16] MEDS ORDERED: ACETAMINOPHEN 325 MG TABLET (FP) PO PRN (16:21)
[2017-07-16] MEDS ORDERED: MAGNESIUM CITRATE 300 ML BOTTLE PO PRN (16:21)
[2017-07-16] MEDS ORDERED: guaiFENesin/D-METHORPHAN HB 10 ML UNIT-DOSE CUPS PO PRN (16:21)
[2017-07-16] MEDS ORDERED: MAGNESIUM HYDROX 2400MG/30ML ORAL SUSPENSION 30 ML CUP PO PRN (16:21)
[2017-07-16] MEDS ORDERED: IBUPROFEN 400 MG TABLET (FP) PO PRN (16:21)
[2017-07-16] MEDS ORDERED: MENTHOL/PHENOL 1 EACH UD MM PRN (16:21)
[2017-07-16] MEDS ORDERED: MAG HYDROX/AL HYDROX/SIMETH 30 ML UNIT-DOSE CUP PO PRN (16:21)
[2017-07-16] MEDS ORDERED: METHADONE HCL 10 MG TABLET (FOR DETOX USE ONLY) PO ONE ×2 (18:15→23:00)
[2017-07-16] MEDS: diazePAM 5 MG TABLET PO PRN (18:46)
[2017-07-16] MEDS: THIAMINE HCL 100 MG TABLET (FP) PO SCH (22:20)
[2017-07-16 22:23] LABS: URINE APPEARANCE CLEAR; URINE BILIRUBIN NEGATIVE (NEGATIVE); URINE BLOOD NEGATIVE (NEGATIVE); URINE COLOR YELLOW; URINE GLUCOSE (UA) NEGATIVE (NEGATIVE); URINE KETONE NEGATIVE (NEGATIVE); URINE LEUK ESTERASE NEGATIVE (NEGATIVE); URINE NITRITE NEGATIVE (NEGATIVE); URINE PROTEIN NEGATIVE (NEGATIVE); URINE UROBILINOGEN NEGATIVE mg/dL (0.2-1.0)
[2017-07-17] MEDS ORDERED: METHADONE HCL 10 MG TABLET (FOR DETOX USE ONLY) PO ONE (10:00)
[2017-07-17] MEDS ORDERED: PRENATAL VITAMINS W/ FOLIC ACID TABLET (FP) PO SCH (10:00)
[2017-07-17 10:33] LABS: HEMATOCRIT 38.8 % (35.4-49); HEMOGLOBIN 12.7 GM/dL (11.7-16.9); MCH 29.3 pg (25.7-33.7); MCHC 32.8 g/dl (32.0-35.9); MEAN CELL VOLUME 89.4 fl (80-96); MEAN PLT VOLUME 8.8 fl (7.5-11.1); PLATELET COUNT 265 K/MM3 (134-434); RBC 4.34 M/mm3 (4.00-5.60); RDW 13.5 % (11.9-15.9); WHITE BLOOD COUNT 8.1 K/mm3 (4.0-10.0)
[2017-07-17 10:34] LABS: ALBUMIN 3.4 g/dl (3.4-5.0); ANION GAP 5 (8-16); BLOOD UREA NITROGEN 15 mg/dL (7-18); CALCIUM 8.4 mg/dL (8.5-10.1); CHLORIDE 106 mmol/L (98-107); CO2 29 mmol/L (21-32); GLUCOSE,RANDOM 84 mg/dL (74-106); POTASSIUM 4.7 mmol/L (3.5-5.1); SODIUM 140 mmol/L (136-145)
[2017-07-17 10:37] LABS: ALK PHOS 105 U/L (45-117); BILIRUBIN,TOTAL 0.6 mg/dL (0.2-1.0); CREATININE 0.8 mg/dL (0.7-1.3); SGOT/AST 13 U/L (15-37); SGPT/ALT 22 U/L (12-78); TOT PROT 6.4 g/dl (6.4-8.2)
[2017-07-17] MEDS: diazePAM 5 MG TABLET PO PRN ×3 (11:56→22:16)
--- NOTE | 2017-07-17 16:00 | EKG ---
Test Reason : Blood Pressure : / mmHG Vent. Rate : 059 BPM Atrial Rate : 059 BPM P-R Int : 142 ms QRS Dur : 094 ms QT Int : 410 ms P-R-T Axes : 054 -33 012 degrees QTc Int : 405 ms SINUS BRADYCARDIA LEFT AXIS DEVIATION ABNORMAL ECG WHEN COMPARED WITH ECG OF 19-JUN-2017 15:05, NO SIGNIFICANT CHANGE WAS FOUND Confirmed by TREVON ZARATE MD ([id number]) on 07/17/2017 3:59:47 PM Referred By: Confirmed By:TREVON ZARATE MD
[2017-07-17] MEDS: THIAMINE HCL 100 MG TABLET (FP) PO SCH (22:16)
[2017-07-17 22:28] VITALS: TEMP 98.1
[2017-07-18 06:34] VITALS: BP 144/58; PULSE 49
--- NOTE | 2017-07-18 09:50 | DS ---
[facility] Detox Discharge Summary Admission Date: 07/16/17 Discharge Date: 07/18/17 - History Present History: Opioid Dependence Additional Comments: patient reports that he is not ready to be detoxed from heroin patient is alert oriented x 3 denies pain dines consumed 100% breakfast, skin warm dry health teaching on complications of substance misuse - Physical Exam Results Vital Signs: Vital Signs Temperature 98.1 F 07/18/17 06:00 Pulse Rate 49 L 07/18/17 06:00 Respiratory Rate 18 07/18/17 06:00 Blood Pressure 144/58 07/18/17 06:00 O2 Sat by Pulse Oximetry (%) Pertinent Admission Physical Exam Findings: withdrawal sx Vital Signs Temperature 98.1 F 07/18/17 06:00 Pulse Rate 49 L 07/18/17 06:00 Respiratory Rate 18 07/18/17 06:00 Blood Pressure 144/58 07/18/17 06:00 O2 Sat by Pulse Oximetry (%) Laboratory Last Values WBC 8.1 K/mm3 (4.0-10.0) 07/17/17 08:00 RBC 4.34 M/mm3 (4.00-5.60) 07/17/17 08:00 Hgb 12.7 GM/dL (11.7-16.9) 07/17/17 08:00 Hct 38.8 % (35.4-49) 07/17/17 08:00 MCV 89.4 fl (80-96) 07/17/17 08:00 MCH 29.3 pg (25.7-33.7) 07/17/17 08:00 MCHC 32.8 g/dl (32.0-35.9) 07/17/17 08:00 RDW 13.5 % (11.9-15.9) 07/17/17 08:00 Plt Count 265 K/MM3 (134-434) D 07/17/17 08:00 MPV 8.8 fl (7.5-11.1) D 07/17/17 08:00 Sodium 140 mmol/L (136-145) 07/17/17 08:00 Potassium 4.7 mmol/L (3.5-5.1) 07/17/17 08:00 Chloride 106 mmol/L (98-107) 07/17/17 08:00 Carbon Dioxide 29 mmol/L (21-32) 07/17/17 08:00 Anion Gap 5 (8-16) L 07/17/17 08:00 BUN 15 mg/dL (7-18) D 07/17/17 08:00 Creatinine 0.8 mg/dL (0.7-1.3) 07/17/17 08:00 Creat Clearance w eGFR > 60 (>60) 07/17/17 08:00 Random Glucose 84 mg/dL (74-106) D 07/17/17 08:00 Calcium 8.4 mg/dL (8.5-10.1) L 07/17/17 08:00 Total Bilirubin 0.6 mg/dL (0.2-1.0) D 07/17/17 08:00 AST 13 U/L (15-37) L D 07/17/17 08:00 ALT 22 U/L (12-78) 07/17/17 08:00 Alkaline Phosphatase 105 U/L (45-117) 07/17/17 08:00 Total Protein 6.4 g/dl (6.4-8.2) 07/17/17 08:00 Albumin 3.4 g/dl (3.4-5.0) 07/17/17 08:00 Urine Color Yellow 07/16/17 20:10 Urine Appearance Clear 07/16/17 20:10 Urine pH 6.0 (5.0-8.0) 07/16/17 20:10 Ur Specific [place] 1.023 (1.001-1.035) 07/16/17 20:10 Urine Protein Negative (NEGATIVE) 07/16/17 20:10 Urine Glucose (UA) Negative (NEGATIVE) 07/16/17 20:10 Urine Ketones Negative (NEGATIVE) 07/16/17 20:10 Urine Blood Negative (NEGATIVE) 07/16/17 20:10 Urine Nitrite Negative (NEGATIVE) 07/16/17 20:10 Urine Bilirubin Negative (NEGATIVE) 07/16/17 20:10 Urine Urobilinogen Negative mg/dL (0.2-1.0) 07/16/17 20:10 Ur Leukocyte Esterase Negative (NEGATIVE) 07/16/17 20:10 RPR Titer Nonreactive (NONREACTIVE) 07/17/17 08:00 lab noted - Treatment Hospital Course: Detox Protocol Followed, Responded well Patient has Accepted a Rehab Referral to: as per counselor arranged - Medication Discharge Medications: Ambulatory Orders NK [No Known Home Medication] 04/14/17 - Diagnosis (1) Opioid dependence with withdrawal Current Visit: Yes Status: Acute - AMA Did Patient Leave Against Medical Advice: Yes
[2017-07-18] MEDS ORDERED: METHADONE HCL 5 MG TABLET (FOR DETOX USE ONLY) PO ONE (10:00)
[2017-07-19] MEDS ORDERED: METHADONE HCL 5 MG TABLET (FOR DETOX USE ONLY) PO ONE (10:00)
[2017-07-20] MEDS ORDERED: METHADONE HCL 10 MG TABLET (FOR DETOX USE ONLY) PO ONE (10:00)
[2017-07-21] MEDS ORDERED: METHADONE HCL 5 MG TABLET (FOR DETOX USE ONLY) PO ONE (06:00)
== END 2017-07-18 08:53 | disposition left against medical advice (07) | DRG 770 ==
LOC: YASAS 12:13 → Y6N 17:43
PROVIDERS: ADMIT Internal Medicine; ATTEND Internal Medicine
PROC: HZ2ZZZZ Detoxification Services for Substance Abuse Treatment (ICD-10-PCS; principal; 2017-07-16)
DX: F11.23 Opioid dependence with withdrawal (principal); F17.210 Nicotine dependence, cigarettes, uncomplicated
CPT/HCPCS: 36415; 80053; 81003; 85027; 86593; 93005; 93010